=== PATIENT | female | born 1970 | race Caucasian/White ===

== ENCOUNTER 2019-09-30 11:10 | Observation (INO) | payer BC ==
[~2019-09-30 11:10] MED LIST: Clindamycin 900 MG/D5W BAG(*) 900 MG/50 ML BAG IVPB ONE
[2019-09-30] MEDS ORDERED: Naproxen TAB* 250 MG ONE (12:09)
[2019-09-30] MEDS ORDERED: Ondansetron INJ* 2 MG/ML VIAL ONE (12:09)
[2019-09-30] MEDS ORDERED: Scopolamine 1.5 mg* PATCH ONE (12:09)
[2019-09-30] MEDS ORDERED: oxyCODONE SR TAB(*) 10 MG TAB.SR ONE (12:10)
[2019-09-30] MEDS ORDERED: LORazepam TAB(*) 1 MG ONE (12:10)
[2019-09-30 12:21] LABS: Calcium 9.1 mg/dL (8.6-10.3); EGFR African American 100.2 (>60); EGFR Non-African American 82.8 (>60); Potassium 3.8 mmol/L (3.5-5.0)
[2019-09-30 12:28] LABS: HCG Pregnancy 1.87 mIU/mL
[2019-09-30] MEDS ORDERED: Ketorolac INJ* 30 MG/ML 1 ML VIAL ONE (12:38)
[2019-09-30] MEDS ORDERED: fentaNYL* 50 MCG/ML 5 ML VIAL (250 MCG VIAL) ONE ×2 (12:38→14:59)
[2019-09-30] MEDS ORDERED: Midazolam* 1 MG/ML 5 ML VIAL (5 MG) ONE (12:38)
[2019-09-30] MEDS ORDERED: Lidocaine 1% INJ* 10 MG/ML 30 ML SDV ONE (12:38)
[2019-09-30] MEDS ORDERED: nitroGLYCERIN DRIP* 25,000 MCG/250 ML BTL ONE (12:39)
[2019-09-30] MEDS ORDERED: Heparin 2 UNITS/ML IVPREMIX* 2,000 ML IV ONE (12:39)
[2019-09-30] MEDS ORDERED: Iohexol 350 (CONTRAST) 200 ML MDV IV ONE ×2 (12:39→14:25)
[2019-09-30 13:04] LABS: ABS Basophils 0.1 10^3/ul (0-0.2); ABS Eosinophils 0.1 10^3/ul (0-0.6); ABS Lymphocytes 2.1 10^3/ul (1.0-4.8); ABS Monocytes 0.6 10^3/ul (0-0.8); Eosinophil % 1.2 %; Hematocrit 23 % (35-47); Lymphocyte % 30.9 %; Mean Corpuscular HGB Conc 31 g/dL (31-36); Mean Corpuscular Hemoglobin 19 pg (27-31); Mean Corpuscular Volume 63 fL (80-97); Mean Platelet Volume 8.2 fL (7.4-10.4); Platelet Count 368 10^3/uL (150-450); Red Blood Count 3.64 10^6 /uL (3.70-4.87); Red Cell Distribution Width 18 % (10-15); White Blood Count 6.9 10^3/uL (3.5-10.8)
[2019-09-30 13:05] LABS: Microcytosis 3+; Polychromasia 2+
[2019-09-30] MEDS ORDERED: HYDROmorphone INJ1* 1 MG/ML SYRINGE ONE (15:23)
[2019-09-30] MEDS ORDERED: HYDROmorphone PCA* 20 MG/20 ML PCA.SYRING ONE (15:40)
[2019-09-30] MEDS ORDERED: Naloxone* 0.4 MG/ML 1 ML VIAL IV PUSH PRN (16:17)
[2019-09-30] MEDS ORDERED: Ferric Gluconate IV* 25 MG in NS 0.9% 50 ML* 50 ML IVPB ONE (16:20)
[2019-09-30] MEDS ORDERED: LORazepam INJ* 2 MG/ML 1 ML VIAL IV PUSH ONE (16:21)
[2019-09-30] MEDS ORDERED: Lorazepam PYXIS KEY PRN (16:21)
[2019-09-30] MEDS ORDERED: Lorazepam PYXIS KEY ONE (16:39)
[2019-09-30] MEDS ORDERED: LORazepam INJ* 2 MG/ML 1 ML VIAL ONE (16:40)
[2019-09-30] MEDS ORDERED: HYDROmorphone PCA* 20 MG/20 ML PCA.SYRING PCA SCH (17:00)
--- NOTE | 2019-09-30 17:36 | PN ---
Progress Note - Progress Note Date of Service: 09/30/19 SOAP: Subjective: Denies nausea or emesis. Pain rated 7/10. Patient has used 1.2 mg of Dilaudid. Objective: Selected Entries 09/30/19 16:30 Pulse Rate 68 Heart Rate 71 Respiratory 15 Rate Blood Pressure 113/73 (mmHg) Blood Pressure 85 Mean O2 Sat by Pulse 98 Oximetry Sleeping, but arousable to voice. AAO x 3 Abd is soft, but tender to palpation. Right groin is soft, nontender. Dressing is clean and dry. 2+ pulses readily palpable at RCFA and pop Assessment: 49 YOF s/p uterine fibroid arterial embolization with pain and nausea reasonably well controlled. Patient encouraged to use Dilaudid DIVER ASSISTANT. Plan: 1. Standard post [facility]FE IR protocol. 2. Admit to [facility]. 3. Will see in AM.
[2019-09-30] MEDS ORDERED: Ferric Gluconate IV* 100 MG in NS 0.9% 100 ML* 100 ML IVPB ONE (18:00)
[2019-09-30] MEDS: Ketorolac INJ* 15 MG/ML 1 ML VIAL IV PUSH SCH (18:18)
[2019-09-30] MEDS: Ondansetron INJ* 2 MG/ML VIAL IV SCH (18:18)
[2019-09-30 19:49] LABS: Hematocrit 23 % (35-47); Hemoglobin 6.9 g/dL (12.0-16.0)
[2019-10-01] MEDS: Ondansetron INJ* 2 MG/ML VIAL IV SCH ×2 (00:07→05:38)
[2019-10-01] MEDS: Ketorolac INJ* 15 MG/ML 1 ML VIAL IV PUSH SCH ×2 (00:07→05:38)
[2019-10-01 00:46] LABS: Hematocrit 24 % (35-47); Hemoglobin 7.2 g/dL (12.0-16.0)
[2019-10-01] MEDS ORDERED: diPHENhydraMINE PO* 25 MG PO ONE (03:00)
--- NOTE | 2019-10-01 03:32 | HP ---
CC: Dr. Dr. Vazquez; Dr. Ingram * HISTORY AND PHYSICAL: DATE OF ADMISSION: 09/30/19 PRIMARY CARE PROVIDER: Dr. Vazquez. OTHER PROVIDER: Dr. Ingram. ATTENDING PHYSICIAN: Dr. Promise Cerrato * (dictated by MILKA Camejo) CHIEF COMPLAINT: Menorrhagia. HISTORY OF PRESENT ILLNESS: Ms. Richards is a 49-year-old female with a past medical history of GERD and depression, who presented to [facility] today for an elective uterine fibroid embolization due to excessive perimenopausal bleeding. She was seen postoperatively in the PACU. She states she feels "weird and out of sorts" as well as weepy and somewhat anxious. She does have intermittent lower abdominal pain that she describes as uterine pain rated at 8/ 10. She is noted to be fairly anemic at this time but denies dizziness or shortness of breath. She reports that she has chronic anemia and this has resulted in some activity intolerance. She denies nausea and vomiting. Again, she has lower abdominal pain as well as some rectal pressure. She has no other complaints today. PAST MEDICAL HISTORY: 1. GERD. 2. Anemia. 3. Depression. 4. Menorrhagia. PAST SURGICAL HISTORY: Right trimalleolar repair, fibroidectomy. HOME MEDICATIONS: 1. Bupropion-XL 150 mg p.o. daily. 2. Cholecalciferol 2000 units p.o. daily. 3. Ibuprofen 600 mg p.o. daily p.r.n. pain. 4. Liquorice 900 mg p.o. daily. 5. Omeprazole 40 mg p.o. daily. 6. Vitamin B complex 1 cap p.o. daily. DRUG ALLERGIES: VICRYL SUTURES. FAMILY HISTORY: Maternal grandfather, heart disease. Mother is healthy. Father due to suicide. No family history of CVA, cancer, diabetes mellitus. SOCIAL HISTORY: The patient is a current smoker. She has smoked approximately 2 packs per week for 27 years. She does drink alcohol, typically drinks 1 to 2 drinks per day. She does not use any recreational drugs. She has a hospice care nurse. She is and lives with her spouse and 16-year-old son. In the event that she is unable to make her own medical decisions, she has appointed her , , to be her surrogate decision maker. REVIEW OF SYSTEMS: A 14-point review of systems was performed and all the pertinent positives and negatives are in the HPI. All other systems are negative. PHYSICAL EXAMINATION GENERAL: Ms. Richards is a well-developed, well-nourished, middle aged white woman who is lying flat in bed. She has mildly slurred speech and appears groggy. She appears mildly uncomfortable. HEENT: PERRL. Sclerae nonicteric. Hearing is grossly intact. Oral mucous membranes are moist. There are no lesions. The pharynx is clear. Tongue is at midline. Palate elevates symmetrically. PULMONARY: Symmetrical chest expansion without use of accessory muscles. Clear to auscultation bilaterally anteriorly without rhonchi, wheeze, rubs, or rales. No digital clubbing or cyanosis. CARDIOVASCULAR: Regular rate and rhythm with S1, S2 present without murmurs, rubs, clicks, or gallops. There is no JVD. There is no peripheral edema. Radial and pedal pulses are palpable. ABDOMEN: Flat. Bowel sounds in all quadrants. Soft and diffusely tender to light palpation in the left and right lower quadrants. Right groin with clean, dry, intact dressing in place, palpable pulse. MUSCULOSKELETAL: Strength not assessed at this time due to the patient being immediately postop. NEURO: The patient is awake but mildly groggy. She is alert and oriented x3. Cranial nerves are grossly intact. ASSESSMENT AND PLAN: Ms. Richards is a 49-year-old female with a past medical history of anemia, GERD, and depression, who presented to [facility] today for uterine fibroid embolization performed by Dr. Ingram. She will be admitted observation for: 1. Uterine fibroid embolectomy. Management per Interventional Radiology, Dr. Ingram, who will be following along. Continue pain management, continue bedrest , may elevate the head of bed 30 degrees. The patient states she is feeling anxious and has requested low-dose Ativan which has been ordered. 2. Anemia. The patient has a long history of anemia, likely due to menorrhagia. Currently her hemoglobin is 7 and she denies symptomatology. The patient is agreeable to continued blood monitoring and is agreeable to transfusion if her hemoglobin drops below 7 g. In the meantime, she will receive ferric gluconate IV. 3. GERD. Continue PPI. 4. Depression. Continue bupropion. 5. Tobacco abuse. The patient was offered nicotine patch but refused. Continue home bupropion. 6. Code status: Full code. TIME SPENT: Approximately 45 minutes was spent on this admission, greater than half that time was spent [id number] with the patient obtaining history, performing physical, and reviewing the plan of care. The case has been reviewed with my attending, Dr. Cerrato, who is in agreement with the plan of care. MILKA BUCHANAN [id number]/CPS #: [id number] [place]
[2019-10-01 05:43] LABS: Hematocrit 21 % (35-47); Hemoglobin 6.5 g/dL (12.0-16.0)
[2019-10-01] MEDS ORDERED: BuPROPion XL* 150 MG TAB.XL PO SCH (09:00)
[2019-10-01] MEDS ORDERED: Pantoprazole TAB * 40 MG TAB PO SCH (09:00)
[2019-10-01] MEDS ORDERED: oxyCODONE TAB* 5 MG TAB PO PRN ×2 (09:10→13:37)
--- NOTE | 2019-10-01 09:10 | PN ---
Progress Note - Progress Note Date of Service: 10/01/19 SOAP: Subjective: Pain rated at 5/10 in the pelvis. No nausea or emesis. Has eaten banana and drank fluids without issue. + void. Objective: Selected Entries 10/01/19 07:26 Temperature 97.8 F Temperature Oral Source Pulse Rate 67 Respiratory 18 Rate Blood Pressure 102/54 (mmHg) Blood Pressure 70 Mean O2 Sat by Pulse 100 Oximetry Patient on Room Yes Air NAD, AAO x 3 Abd is soft, minimally tender Right groin is soft, nontender Dressing is clean and dry 2+ pulse at RCFA and RPOP Assessment: 49 YOF POD #1 s/p Uterine Fibroid Arterial Embolization with pain and nausea controlled. Plan: 1. IV to PO pharmactherapy. 2. Advance diet. 3. Ambulate around unit with assistance.
[2019-10-01] MEDS ORDERED: diPHENhydraMINE PO* 25 MG PO PRN (10:05)
[2019-10-01] MEDS: Ketorolac TAB * 10 MG TAB PO SCH ×2 (10:05→15:54)
[2019-10-01] MEDS: Ondansetron ODT TAB* 4 MG PO SCH ×2 (10:06→15:54)
--- NOTE | 2019-10-01 10:46 | PN ---
Progress Note - Progress Note Date of Service: 10/01/19 Note: Post uterine fibroid embolization outpatient medication regimen will be as follows: Toradol 10 mg PO Q 6 hours x 3 days (Dispense #15 with one refill) AFTER Toradol is complete: Ibuprofen 400 mg PO Q 6 hours OR Naprosyn 225 mg PO Q 8 hours for 3-5 days (do not take both) Oxycodone 5 mg, take 1 tablet by mouth Q 4 hours PRN breakthrough pain ( Dispense #40) Zofran 4 mg PO Q 6 hours x 7 days (Dispense #30 with one refill) Scopolamine 1.5 mg transdermal to mastoid process. On 10/03/19 at 900 AM, remove current patch, replace with new patch and wear x 3 days. Drink one cup of laxative tea daily (For example, "Smooth Move") for one week.
[2019-10-01] MEDS ORDERED: oxyCODONE TAB* 5 MG TAB PO ONE ×2 (13:37→16:16)
[2019-10-01 14:40] LABS: Hematocrit 24 % (35-47); Hemoglobin 7.6 g/dL (12.0-16.0)
[2019-10-01] MEDS ORDERED: LORazepam TAB(*) 0.5 MG PO ONE (16:16)
--- NOTE | 2019-10-01 16:24 | PN ---
Progress Note - Progress Note Date of Service: 10/01/19 Note: Discussion with patient about apprehension about pain control. Patient reports taking Oxycodone 15 mg PO every 3 hours x 1 week following her ankle fracture. The following modifications will be made: Oxycodone 10 mg PO every 6 hours PRN for breakthrough pain x 1 week. (Dispense # thirty 10 mg tablets) Ativan 0.5 mg PO every 6 hours PRN for breakthrough pain and/or nausea x 1 week. (Dispense # thirty tablets)
[2019-10-01 16:45] VITALS: BP 102/64
[2019-10-01 18:32] LABS: Hematocrit 24 % (35-47); Hemoglobin 7.4 g/dL (12.0-16.0)
--- NOTE | 2019-10-01 21:29 | DS ---
CC: Dr. Anabella Vazquez; Dr. Jose Ramon Ingram * DISCHARGE SUMMARY: DATE OF ADMISSION: 09/30/19 DATE OF DISCHARGE: 10/01/19 PRIMARY CARE PROVIDER: Dr. Anabella Vazquez. INTERVENTIONAL RADIOLOGIST: Dr. Jose Ramon Ingram. ATTENDING PHYSICIAN: Dr. Travis Tse.* (DICTATED BY KELL SALGADO NP) PRIMARY DIAGNOSES: 1. Status post uterine fibroid embolization. 2. Anemia. SECONDARY DIAGNOSES: 1. Gastroesophageal reflux disease. 2. Depression. HISTORY OF PRESENT ILLNESS AND HOSPITAL COURSE: Ms. Richards is a 49-year-old female with past medical history of GERD, anemia, depression, and menorrhagia who presented [place] [facility] [place] for an elective uterine fibroid embolization with Dr. Ingram. Please see the history and physical by MILKA Camejo, for complete summary of the events leading up to this hospitalization. In short, the patient underwent a uterine fibroid embolization yesterday without significant difficulty during the procedure. She recovered well in the PACU and was then admitted by the hospitalist service for overnight observation. The patient received IV pain medication overnight and this morning was transitioned to oral pain medication. She does have significant pain and was initially hesitant to be discharged today, though after talking with Dr. Ingram is agreeable to discharge home with oral pain medications. Additionally, she was noted to be anemic on presentation yesterday with an H and H of 7 and 23. This morning, H and H dropped to 6.5 and 21. She did receive 1 unit of packed red blood cells and H and H after the transfusion was noted to be 7.6 and 24. Of note, the patient has been anemic recently and this was one of the reasons for the elective uterine fibroid embolization. She is tolerating a regular diet and ambulating around the unit. On exam, she is alert and oriented. She has no focal neurologic deficits. Her heart has a regular rate and rhythm without murmurs, rubs, or gallops. Her lungs are clear to auscultation without rhonchi, wheezes, or rubs. There is no edema. Physical exam is otherwise benign. Ms. Richards is stable for discharge today. Most recent vitals are as follows: Temp 98.0, heart rate 79, respiratory rate 16, oxygen saturation 98% on room air , blood pressure 102/64. DISCHARGE MEDICATIONS: New Medications: 1. Ibuprofen 400 mg p.o. q.6 hours or naproxen 225 mg p.o. q.8 hours for 3 to 5 days (do not take both). 2. Toradol 10 mg p.o. q.6 hours x3 days. 3. Lorazepam 0.5 mg p.o. q.6 hours p.r.n. for anxiety. 4. Ondansetron 4 mg p.o. q.6 hours x7 days. 5. Oxycodone 5 to 15 mg p.o. q.4 hours p.r.n. for breakthrough pain, max daily dose 60 mg. 6. Scopolamine patch 1.5 mg 1 patch transdermal q.72 hours (replace current patch on 10/03/19). Continued Medications: 1. Bupropion 150 mg p.o. daily. 2. Omeprazole 40 mg p.o. daily. 3. Cholecalciferol 2000 units p.o. daily. 4. Licorice 900 mg p.o. daily. 5. Vitamin B complex 1 cap p.o. daily. DISCHARGE PLAN: Ms. Richards will be discharged home. Activity will be as tolerated. Diet will be regular as tolerated. The patient has been given specific instructions from Dr. Ingram including avoiding bathtubs and swimming for 1 week, avoiding strenuous exercise for 1 week, and pelvic rest for 4 weeks. She has been advised not to drive while taking narcotic pain medications. Medications are as noted above. The patient will start on Toradol for 3 days and then will transition to either ibuprofen or naproxen for another 3 to 5 days. She has been advised to not take any of these medications together. She can use oxycodone for breakthrough pain and I have prescribed 5 to 15 mg as she has reported that she has required up to 15 mg in the past to manage pain. She should additionally replace her current scopolamine patch on 10/03/19. She has been instructed by Dr. Ingram when to return to the emergency room or contact her physician including any development of foul- smelling vaginal discharge, fever, chills, increased pelvic pain, or swelling or bleeding from her access site. 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 She will need to follow up with Dr. Ingram as previously instructed and can follow up with her primary care provider and scrap handler as needed. She should return to the emergency room or nearest hospital for any worsening of symptoms, shortness of breath, lightheadedness, dizziness, chest discomfort, high fevers, chills, night sweats , loss of consciousness, or any other worrisome signs or symptoms. DISCHARGE CONDITION: Stable. DISCHARGE DISPOSITION: Home. This is a summarized report of a complex medical history and hospital stay. For further details, please see the entire medical record. TIME SPENT: Approximately 50 minutes were spent on this discharge. KELL SALGADO, SENIOR ADMINISTRATIVE ASSOCIATE [id number]/CPS #: [id number] [place]
== END 2019-10-01 18:34 | disposition home or self-care (01) ==
LOC: CHICATH 11:10 → SSU 16:24
PROVIDERS: ADMIT Physician Assistant Medical; ATTEND Radiology Diagnostic Radiology
DX: N92.4 Excessive bleeding in the premenopausal period (principal); D25.9 Leiomyoma of uterus, unspecified; K21.9 Gastro-esophageal reflux disease without esophagitis; F32.9 Major depressive disorder, single episode, unspecified; D64.9 Anemia, unspecified; N92.0 Excessive and frequent menstruation with regular cycle; Z79.899 Other long term (current) drug therapy; F17.210 Nicotine dependence, cigarettes, uncomplicated; R10.2 Pelvic and perineal pain
CPT/HCPCS: 36415; 37243; 75736; 76937; 80048; 84702; 85014; 85018; 85025; 85060; 86850; 86900; 86901; 86922; 96374; 96376; 99156; 99157; A9270-GY; C1769; C1884; C1887; C1894; G0378; J1170; J1644; J1885; J2060; J2250; J2405; J2916; J3010; P9040